=== PATIENT | female | born 1955 | race Asian ===

== ENCOUNTER 2020-09-18 10:05 | Day surgery (SDC) | payer BC ==
[~2020-09-18] VITALS: Ht 152.4 cm; Wt 82.0 kg
[2020-09-18 11:16] VITALS: BP 155/83; PULSE 98; TEMP 98
[2020-09-18] MEDS ORDERED: ASPIRIN E.C. 8181 MG PO (11:21)
[2020-09-18] MEDS ORDERED: KLOR-CON M1010 MEQ PO (11:22)
[2020-09-18] MEDS ORDERED: PROTONIX 40MG T40 MG PO (11:22)
[2020-09-18] MEDS ORDERED: LOPRESSOR100 MG PO (11:23)
[2020-09-18] MEDS ORDERED: COZAAR 25MG25 MG/TAB PO (11:24)
[2020-09-18] MEDS ORDERED: SYNTHROID0.1 MG/TAB PO (11:25)
[2020-09-18] MEDS ORDERED: HCTZ 25MG TAB25 MG PO (11:25)
[2020-09-18] MEDS ORDERED: B-12 250 MCG PO (11:26)
[2020-09-18] MEDS ORDERED: FERROUS SU325 MG/TAB PO (11:26)
[2020-09-18] MEDS ORDERED: FIORICET 325 MG1 TA1 PO (11:27)
[2020-09-18 11:55] VITALS: BP 129/75; PULSE 68; TEMP 97.8
--- NOTE | 2020-09-18 11:55 | NUR ---
PATIENT TO [facility]ERY [facility] 4 POST PROCEDURE VIA CART ACCOMPANIED BY ELAYNE CARDONA. UP TO CHAIR AMBULATORY WITH 1 PERSON ASSIST. MADE COMFORTABLE IN CHAIR. GIVEN WARM BLANKETS. GIVEN JUICE AND CRACKERS WITH PEANUT BUTTER. VITAL SIGNS DONE. REPORT FROM ELAYNE CARDONA. DENIES NAUSEA OR PAIN.
[2020-09-18 12:00] VITALS: BP 115/76; PULSE 74
[2020-09-18 12:15] VITALS: BP 157/75; PULSE 66
--- NOTE | 2020-09-18 12:27 | NUR ---
IN TO TALK WITH PATIENT
[2020-09-18 12:30] VITALS: BP 148/91; PULSE 67
--- NOTE | 2020-09-18 12:34 | NUR ---
IV SITE TO RIGHT HAND DISCONTINUED. NO REDNESS OR SWELLING. SECURED WITH COTTON AND COBAN.
--- NOTE | 2020-09-18 12:52 | NUR ---
PATIENT GIVEN VERBAL EXPLANATION AND HARDCOPIES OF DISMISSAL INSTRUCTIONS. PATIENT GIVES VERBAL UNDERSTANDING AND SIGNS UNDERSTANDING. DENIES QUESTIONS.
--- NOTE | 2020-09-18 12:57 | NUR ---
PATIENT ACCOMPANIED TO WAITING FAMILY MEDICINE PHYSICIAN ASSISTANT VIA WHEELCHAIR BY Mita MONTOYA RN. ASSISTED TO VEHICLE.
== END 2020-09-18 12:57 | disposition home or self-care (01) ==
LOC: SDCO 10:05
DX: K21.9 Gastro-esophageal reflux disease without esophagitis (principal); K29.30 Chronic superficial gastritis without bleeding; I10 Essential (primary) hypertension; E03.9 Hypothyroidism, unspecified; D50.9 Iron deficiency anemia, unspecified; G43.909 Migraine, unspecified, not intractable, without status migrainosus; Z20.822 Contact with and (suspected) exposure to COVID-19; Z88.1 Allergy status to other antibiotic agents; Z88.5 Allergy status to narcotic agent; Z79.890 Hormone replacement therapy; Z79.899 Other long term (current) drug therapy
CPT/HCPCS: J2704; J7120

== ENCOUNTER → 2021-04-09 | Outpatient (CLI) | payer BC ==
[~2021-04-09] MED LIST: ASPIRIN E.C. 8181 MG PO; B-12 250 MCG PO; COZAAR 25MG25 MG/TAB PO; FERROUS SU325 MG/TAB PO; FIORICET 325 MG1 TA1 PO; HCTZ 25MG TAB25 MG PO; KLOR-CON M1010 MEQ PO; LOPRESSOR100 MG PO; PROTONIX 40MG T40 MG PO; SYNTHROID0.1 MG/TAB PO
== END ==
LOC: MC.RAD 09:28
DX: Z12.31 Encounter for screening mammogram for malignant neoplasm of breast (principal)

== ENCOUNTER 2022-02-27 11:46 | Emergency (ER) | payer MEDICARE, OTHER ==
[~2022-02-27] VITALS: Ht 154.9 cm; Wt 75.0 kg
[2022-02-27 12:14] VITALS: TEMP 98.5
[2022-02-27 12:44] LABS: COLLECTION METHOD CLEAN CATCH
[2022-02-27 12:47] LABS: BASO # 0.1 K/mm3 (0.0-0.2); BASO % 0.5 % (0.0-2.0); EOS # 0.2 K/mm3 (0.0-0.7); EOS % 1.7 % (0.0-4.0); GRAN # 7.1 K/mm3 (1.4-6.5); GRAN % 75.1 % (42.2-75.2); HEMATOCRIT 38.4 % (37.0-47.0); HEMOGLOBIN 13.3 g/dl (12.5-16.0); MEAN CELL VOLUME 87 fl (80.0-100.0); MEAN CORPUSCULAR HEMOGLOBIN 30 pg (27-31); MEAN CORPUSCULAR HGB CONC 35 g/dl (33.0-37.0); MEAN PLATELET VOLUME 9.9 fl (7.4-10.4); MONO # 1.1 K/mm3 (0.1-0.6); MONO % 11.5 % (1.7-9.3); PLATELET COUNT 195 K/mm3 (130-400); REDCELL DISTRIBUTION WIDTH-CV 13.6 % (11.5-14.5)
[2022-02-27 12:52] LABS: MUCOUS Present (NOT PRESENT); SQUAMOUS EPITHELIAL 0-2 /hpf (0-10); URINE APPEARANCE Clear (CLEAR/HAZY); URINE BACTERIA None Seen /hpf (NONE SEEN); URINE COLOR Yellow (YELLOW); URINE RBC 0-2 /hpf (0-2)
[2022-02-27 12:53] LABS: PH 5.5 (5.0-8.5); URINE BLOOD Negative (NEGATIVE); URINE GLUCOSE Negative (NEGATIVE); URINE KETONE Negative (NEGATIVE); URINE NITRATE Negative (NEGATIVE); URINE PROTEIN(semi-quant) Negative (NEGATIVE); URINE UROBILINOGEN 0.2 E.U/dL (0.2-1.0)
[2022-02-27 13:05] LABS: ALBUMIN 3.7 gm/dL (3.4-4.8); BILIRUBIN,TOTAL 2.1 mg/dL (0.2-1.2); CALCIUM 9.7 mg/dL (8.4-10.2); CREATININE, serum 0.77 mg/dL (0.57-1.11); TOTAL PROTEIN 7.3 gm/dL (6.2-8.1)
[2022-02-27 13:09] LABS: POTASSIUM 2.9 mmol/L (3.5-4.5)
[2022-02-27 15:49] VITALS: BP 159/94; PULSE 98
[2022-02-27] MEDS ORDERED: PERCOCET 325 MG1 TA2 PO (15:50)
== END 2022-02-27 16:00 | disposition home or self-care (01) ==
LOC: COL.ER 11:46
PROVIDERS: Personal Emergency Response Attendant
DX: R53.81 Other malaise (principal); R00.0 Tachycardia, unspecified; Z88.5 Allergy status to narcotic agent; Z20.822 Contact with and (suspected) exposure to COVID-19
CPT/HCPCS: J2405; J3010; J7030

== ENCOUNTER → 2022-03-14 | Outpatient (CLI) | payer MEDICARE, OTHER ==
[~2022-03-14] MED LIST changes: +PERCOCET 325 MG1 TA2 PO
== END ==
LOC: COL.RAD 09:24
DX: J18.8 Other pneumonia, unspecified organism (principal); I51.7 Cardiomegaly; I71.9 Aortic aneurysm of unspecified site, without rupture; R79.89 Other specified abnormal findings of blood chemistry
CPT/HCPCS: Q9967

== ENCOUNTER 2022-11-23 14:55 | Outpatient (CLI) | payer MEDICARE, OTHER ==
[~2022-11-23] VITALS: Ht 154.9 cm; Wt 81.0 kg
[~2022-11-23 14:55] MED LIST changes: -SYNTHROID0.1 MG/TAB PO; +TIROSINT75 MC1 PO
[2022-11-23 15:16] VITALS: BP 121/69; PULSE 84; TEMP 97.7
[2022-11-23 15:30] VITALS: BP 144/67; PULSE 70
[2022-11-23 15:45] VITALS: BP 133/69; PULSE 68
[2022-11-23 16:00] VITALS: BP 147/81; PULSE 69
--- NOTE | 2022-11-23 16:44 | NUR ---
Pt ambulated to [facility] accompanied by . Scheduled for first reclast infusion. Meds and HX reviewed with the pt. IV placed and infusion started, running for about 30 minutes. Pt stayed post infusion for 30 minutes to make sure they did not have any reaction. Pt then exited the unit with a steady gait.
== END 2022-11-23 16:44 | disposition home or self-care (01) ==
LOC: EUO 14:55
DX: M81.0 Age-related osteoporosis without current pathological fracture (principal)
CPT/HCPCS: J3489

== ENCOUNTER → 2023-08-22 | Outpatient (CLI) | payer MEDICARE | LOC: COL.RAD 08:37 | DX: I71.43 Infrarenal abdominal aortic aneurysm, without rupture (principal) ==